=== PATIENT | female | born 1980 | race Hispanic/Latino ===

== ENCOUNTER 2016-08-06 18:40 | Emergency (ER) | payer BC ==
[2016-08-06 18:58] VITALS: BP 115/78; PULSE 109; RESP 20; TEMP 98.7; O2SAT 97
--- NOTE | 2016-08-06 19:33 | ED PDOC ---
Upper Extremity Pain/Injury Time Seen by Provider: 08/06/16 19:06 Chief Complaint (Nursing): Upper Extremity Problem/Injury Chief Complaint (Provider): Upper Extremity injury History Per: Patient History/Exam Limitations: no limitations Onset/Duration Of Symptoms: Mins (30x minutes prior to arrival) Current Symptoms Are (Timing): Gone Now Severity: None Additional Complaint(s): 36 year old female 17 weeks with no pertinent medical history presents to the ED with complaints of a right shoulder dislocation that occurred 30x minutes prior to arrival. Patient reports that the shoulder pain resolved just prior to evaluation by me. She has no complaints right now. She reports that she was stretching and reaching to grab a dress from her closet and she fell slightly. She reports feeling pain right after and dislocating her shoulder, but her pain has now resolved. She has full range of motion and states that this has happened multiple times (her right shoulder partially dislocating and being able to reduce it by herself). She denies having any complaints related to her . PMD: Not provided. Past Medical History Reviewed: Historical Data, Nursing Documentation, Vital Signs Vital Signs: Last Vital Signs Temp 98.7 F 08/06/16 18:54 Pulse 109 H 08/06/16 18:54 Resp 20 08/06/16 18:54 BP 115/78 08/06/16 18:54 Pulse Ox 97 08/06/16 18:54 - Medical History PMH: No Chronic Diseases - Surgical History Surgical History: Other surgeries: left ankle surgery - Family History Family History: States: No Known Family Hx - Allergies Allergies/Adverse Reactions: Allergies Allergy/AdvReac Type Severity Reaction Status Date / Time No Known Allergies Allergy Verified 08/06/16 18:54 Review of Systems ROS Statement: Except As Marked, All Systems Reviewed And Found Negative Musculoskeletal: Positive for: Shoulder Pain (right shoulder pain, has since resolved) Physical Exam - Reviewed Nursing Documentation Reviewed: Yes Vital Signs Reviewed: Yes - Physical Exam Appears: Positive for: Well, Non-toxic, No Acute Distress Head Exam: Positive for: ATRAUMATIC, NORMOCEPHALIC Skin: Positive for: Normal Color, Warm, Dry Neck: Positive for: Normal, Painless ROM, Supple Cardiovascular/Chest: Positive for: Regular Rate, Rhythm Respiratory: Positive for: Normal Breath Sounds. Negative for: Respiratory Distress Gastrointestinal/Abdominal: Positive for: Soft. Negative for: Tenderness Extremity: Positive for: Normal ROM. Negative for: Deformity, Swelling Neurologic/Psych: Positive for: Alert, Oriented (3x) - ECG O2 Sat by Pulse Oximetry: 97 (RA) Pulse Ox Interpretation: Normal Medical Decision Making Medical Decision Makin:06 Initial impression: 36 year old female with a right shoulder subloxation/ dislocation without trauma. Dislocation was spontaneously reduced. Patient will be given an arm sling. There is no indication for imaging and intervention. Patient will be referred to orthopedic surgeon. Scribe Attestation: Documented by Laquita Vásquez, acting as a scribe for Saurabh Pearson MD. Provider Scribe Attestation: All medical record entries made by the Scribe were at my direction and personally dictated by me. I have reviewed the chart and agree that the record accurately reflects my personal performance of the history, physical exam, medical decision making, and the department course for this patient. I have also personally directed, reviewed, and agree with the discharge instructions and disposition. Disposition - Clinical Impression Clinical Impression: Shoulder subluxation, right - Patient ED Disposition Is Patient to be Admitted: No Doctor Will See Patient In The: Office Counseled Patient/Family Regarding: Studies Performed, Diagnosis, Need For Followup - Disposition Referrals: Fernando Best III, MD [Staff Provider] - Disposition: Routine/Home Disposition Time: 20:30 Condition: GOOD Additional Instructions: Follow up with orthopedist in 1 week. Carry arm sling at all times. Instructions: Shoulder Dislocation (ED)
== END 2016-08-06 19:45 | disposition home or self-care (01) ==
LOC: H.ER 18:40
DX: M25.511 Pain in right shoulder (principal); Z33.1 Pregnant state, incidental